=== PATIENT | female | born 1960 | race Caucasian/White ===

== ENCOUNTER 2016-10-22 13:51 | Inpatient (IN) | payer OTHER ==
[2016-10-22] MEDS ORDERED: LORAZEPAM 0.5 MG TAB PO ONE (14:11)
[2016-10-22] MEDS ORDERED: LORAZEPAM 0.5 MG TAB ONE (14:13)
[2016-10-22] MEDS ORDERED: ONDANSETRON 4 MG ODT BU ONE (14:44)
[2016-10-22] MEDS ORDERED: ONDANSETRON 4 MG ODT ONE (14:48)
[2016-10-22] MEDS ORDERED: SODIUM CHLORIDE 0.9% 1000 ML SOL IV SCH (15:00)
[2016-10-22 15:08] LABS: BASOPHILS % (AUTO) 1 % (0-3); EOSINOPHILS % (AUTO) 0 % (0-9); HEMATOCRIT 30 % (35-47); MEAN CORPUSCULAR HGB CONC 35.5 gm/dl (32.0-36.0); MEAN CORPUSCULAR VOLUME 83 fL (81-99); MONOCYTES % (AUTO) 5.3 % (0-12); NEUTROPHILS % (AUTO) 82.5 % (37-80)
[2016-10-22 15:20] LABS: ALBUMIN 3.1 gm/dl (3.4-5.0); CALCIUM 8.6 mg/dl (8.5-10.1); POTASSIUM 4.1 mMol/L (3.5-5.1)
[2016-10-22 16:03] VITALS: RESP 20
[2016-10-22] MEDS ORDERED: LORAZEPAM 0.5 MG TAB PO PRN (18:07)
[2016-10-22] MEDS ORDERED: SODIUM CHLORIDE 0.9% 1000ML 1,000 ML IV ONE (18:14)
[2016-10-22] MEDS ORDERED: PHYTONADIONE 10 MG/ML SOL IM STA (18:37)
[2016-10-22] MEDS ORDERED: SODIUM CHLORIDE 0.9% FLUSH 10 ML SOL IV PRN (18:41)
[2016-10-22] MEDS ORDERED: SODIUM CHLORIDE 0.9% 500 ML 500 ML IV SCH (18:45)
[2016-10-22] MEDS ORDERED: PHYTONADIONE 10 MG/ML SOL ONE (18:47)
[2016-10-22] MEDS ORDERED: ATORVASTATIN 10 MG TAB PO SCH (21:00)
[2016-10-22] MEDS ORDERED: LEFLUNOMIDE 20 MG PO SCH (21:00)
[2016-10-22] MEDS ORDERED: FERROUS SULFATE 325 MG TAB PO SCH (21:00)
[2016-10-22] MEDS ORDERED: ATORVASTATIN CALCIUM 80 MG TAB PO SCH (21:00)
[2016-10-22] MEDS ORDERED: TRAMADOL HYDROCHLORIDE 50 MG TAB PO SCH (21:00)
[2016-10-22] MEDS ORDERED: MONTELUKAST SODIUM 10 MG TAB PO SCH (21:00)
[2016-10-22] MEDS: NITROGLYCERIN 0.4 MG TAB SL PRN (23:09)
[2016-10-23] MEDS: NITROGLYCERIN 0.4 MG TAB SL PRN (00:13)
[2016-10-23] MEDS: DEXTROSE/SALINE 0.45/KCL 20MEQ 1,000 ML/1,000 ML SOL IV SCH ×2 (00:59→01:00)
[2016-10-23 01:54] VITALS: BP 117/71; PULSE 84; TEMP 98.2; O2SAT 94
[2016-10-23] MEDS ORDERED: LEVOTHYROXINE SODIUM 50 MCG TAB PO SCH (07:00)
[2016-10-23] MEDS ORDERED: METOPROLOL SUCCINATE 25 MG TAB.ER.24H PO SCH (09:00)
[2016-10-23] MEDS ORDERED: AMLODIPINE 5 MG TAB PO SCH (09:00)
[2016-10-23] MEDS ORDERED: LISINOPRIL 5 MG TAB PO SCH (09:00)
[2016-10-23] MEDS ORDERED: LORATADINE 10 MG TAB PO SCH (09:00)
[2016-10-23] MEDS ORDERED: PANTOPRAZOLE SODIUM 40 MG/10 ML PDS IV SCH (09:00)
== END 2016-10-23 04:40 | disposition short-term general hospital (02) | DRG 253 ==
LOC: ED 13:51 → ACUTE CARE 16:29 → UNDOADMIN 16:29 → ACUTE CARE 16:40
PROVIDERS: ADMIT Family Medicine; ATTEND Family Medicine
PROC: 30233K1 Transfusion of Nonautologous Frozen Plasma into Peripheral Vein, Percutaneous Approach (ICD-10-PCS; principal; 2016-10-22)
DX: K92.2 Gastrointestinal hemorrhage, unspecified (principal); K85.90 Acute pancreatitis without necrosis or infection, unspecified; R06.09 Other forms of dyspnea; R79.89 Other specified abnormal findings of blood chemistry; R79.1 Abnormal coagulation profile; D64.9 Anemia, unspecified
CPT/HCPCS: 36415; 71020; 80053; 84484; 85025; 85610; 86900; 86901; 86927; 93005; 96365; 99070; 99284; J3430; P9017